=== PATIENT | female | born 1965 | race Caucasian/White ===

== ENCOUNTER 2019-07-28 22:02 | Emergency (ER) | payer OTHER ==
[~2019-07-28] VITALS: Ht 170.2 cm; Wt 77.1 kg
[~2019-07-28 22:02] MED LIST: KEFLEX500 MG PO; ULTRAM 50MG TAB50 MG PO
[2019-07-28 22:57] VITALS: BP 115/65
== END 2019-07-28 22:58 | disposition home or self-care (01) ==
LOC: M.ERS 22:02
DX: S62.347A Nondisplaced fracture of base of fifth metacarpal bone, left hand, initial encounter for closed fracture (principal); Z90.49 Acquired absence of other specified parts of digestive tract; W18.39XA Other fall on same level, initial encounter; Y93.89 Activity, other specified; Y92.89 Other specified places as the place of occurrence of the external cause; Y99.8 Other external cause status